=== PATIENT | male | born 1935 | race Caucasian/White ===

== ENCOUNTER → 2023-04-19 | Emergency (ER) | payer OTHER ==
[~2023-04-19] VITALS: Ht 172.7 cm; Wt 81.6 kg
[~2023-04-19] MED LIST: ACETAMINOPHEN500 M1 PO; AMLODIPINE BESYL5 MG PO; CEPHALEXIN500 MG PO; COZAAR100 MG PO; LEVO-T125 MCG PO; RAYOS5 MG PO; SIMVASTATIN5 MG PO
== END | disposition left against medical advice (07) ==
LOC: ER 12:45
DX: Z53.21 Procedure and treatment not carried out due to patient leaving prior to being seen by health care provider (principal)